=== PATIENT | female | born 1975 | race Caucasian/White ===

== ENCOUNTER 2022-01-27 09:25 | Emergency (ER) | payer MEDICAID ==
[~2022-01-27] VITALS: Ht 149.9 cm; Wt 60.8 kg
[2022-01-27 09:40] VITALS: BP 130/82
--- NOTE | 2022-01-27 09:46 | NUR ---
Pt to lobby
[2022-01-27] MEDS ORDERED: NAPR-1704 PO (10:16)
[2022-01-27] MEDS ORDERED: LIDO100S RIGHT EAR (10:16)
[2022-01-27] MEDS ORDERED: COROTSOL RIGHT EAR (10:16)
--- NOTE | 2022-01-27 10:23 | NUR ---
Patient discharged with v/s stable. Written and verbal after care instructions given and explained. Patient alert, oriented and verbalized understanding of instructions. Ambulatory with STEADY GAIT All questions addressed prior to discharge. ID band removed. Patient advised to follow up with PMD. Rx of LIDOCAINE, CORTISPORIN OTIC SOLN, AND NAPROXEN given. Patient educated on indication of medication including possible reaction and side effects. Opportunity to ask questions provided and answered.
== END 2022-01-27 10:23 | disposition home or self-care (01) ==
LOC: MED 09:25
DX: H60.91 Unspecified otitis externa, right ear (principal); M54.50 Low back pain, unspecified; E11.9 Type 2 diabetes mellitus without complications; Z79.4 Long term (current) use of insulin; Z79.899 Other long term (current) drug therapy
CPT/HCPCS: 99283